=== PATIENT | female | born 1965 | race African-American/Black ===

== ENCOUNTER 2016-10-16 16:57 | Emergency (ER) | payer SELFPAY ==
[~2016-10-16] VITALS: Ht 152.4 cm; Wt 120.7 kg
[~2016-10-16 16:57] MED LIST: HYDR-971 PO; LISI40TA PO
[2016-10-16] MEDS ORDERED: HYDR12.58 PO (18:19)
[2016-10-16] MEDS ORDERED: HYDROCODONE/APAP 5/325MG TABLET. PO ONE (18:30)
--- NOTE | 2016-10-16 18:42 | PHYS DOC ---
Past Medical History Past Medical History: Asthma, Diabetes-Type II, Hypertension Additional Past Medical Histor: cervical cancer, Past Surgical History: Tubal ligation Additional Past Surgical Histo: R hand surgery Alcohol Use: None Drug Use: None Adult General Chief Complaint Chief Complaint: LOWER EXTREMITY SWELLING HPI HPI Patient is a 51 year old female who presents with complaint of left lower show any swelling and pain. Patient states that her symptoms started 3 days ago and have been progressively getting worse. Patient denies any associated fevers, shortness of breath, or chest pain. Patient denies any previous history of similar symptoms. Patient has history of diabetes mellitus type 2. The patient rates pain currently as 5 out of 10. The patient is concerned as to the cause of her swelling in the lower extremity and wants to make sure that she does not have any evidence of something serious. Review of Systems Review of Systems Constitutional: Denies fever or chills [] Eyes: Denies change in visual acuity, redness, or eye pain [] HENT: Denies nasal congestion or sore throat [] Respiratory: Denies cough or shortness of breath [] Cardiovascular: Denies chest pain or edema [] GI: Denies abdominal pain, nausea, vomiting, bloody stools or diarrhea [] : Denies dysuria or hematuria [] Musculoskeletal: Left lower extremity swelling and pain [] Integument: Denies rash or skin lesions [] Neurologic: Denies headache, focal weakness or sensory changes [] Current Medications Current Medications Current Medications Medications (Trade) Dose Ordered Sig/Jessi Start Time Stop Time Status Last Admin Dose Admin Acetaminophen/ Hydrocodone Bitart (Lortab 5/325) 1 tab 1X ONCE 10/16/16 18:30 10/16/16 18:31 DC 10/16/16 18:45 1 TAB Allergies Allergies Allergies Coded Allergies Type Severity Reaction Last Updated Verified morphine Allergy Intermediate Rash/HIVES/ITCH 08/08/15 Yes Physical Exam Physical Exam Constitutional: Alert, obese, afebrile, appears in mild discomfort. [] HENT: Normocephalic, atraumatic, bilateral external ears normal, oropharynx moist, no oral exudates, nose normal. [] Eyes: PERRLA, EOMI, conjunctiva normal, no discharge. [] Neck: Normal range of motion, no tenderness, supple, no stridor. [] Cardiovascular:Heart rate regular rhythm, no murmur [] Lungs & Thorax: Bilateral breath sounds clear to auscultation [] Abdomen: Bowel sounds normal, soft, no tenderness, no masses, no pulsatile masses. [] Skin: Warm, dry, no erythema, no rash. [] Back: No tenderness, no CVA tenderness. [] Extremities: Bilateral lower extremities are grossly symmetric, bilateral 1+ pitting edema, left calf tenderness to palpation, pulses 2+ distally. [] Neurologic: Alert and oriented X 3, normal motor function, normal sensory function, no focal deficits noted. [] Current Patient Data Vital Signs Vital Signs Date Time Temp Pulse Resp B/P Pulse Ox O2 Delivery O2 Flow Rate FiO2 10/16/16 20:29 82 153/81 Room Air 10/16/16 17:05 97.5 18 97 97.5 Lab Values Laboratory Tests Test 10/16/16 17:37 POC Urine HCG, Qualitative Hcg negative (Negative) EKG EKG Not performed [] Radiology/Procedures Radiology/Procedures [facility] [address] [place], [place] [id number] IMAGING REPORT Signed PATIENT: NIMCO MAYA ACCOUNT: [id number] : 1965 LOCATION: ER AGE: 51 SEX: F EXAM STATUS: REG ER ORD. PHYSICIAN: ELISEO MELO MD REASON: left lower extremity swelling and pain, rule out DVT PROCEDURE: VENOUS LOWER EXTREMITY LEFT PROCEDURE Left lower extremity venous Doppler. HISTORY Left ankle swelling. Pain behind left knee for 3 days. TECHNIQUE Veins of left lower extremity were interrogated under grayscale, color Doppler, and spectral Doppler modes. COMPARISON None. FINDINGS Veins are compressible and demonstrate normal Doppler flow dynamics. There is no evidence of deep venous thrombosis. IMPRESSION No evidence of left lower extremity deep venous thrombosis. Electronically signed by: Og Walker MD (Oct 16, 2016 19:38:31) DICTATED and SIGNED BY: OG WALKER MD DATE: 10/16/161937 CC: JULIA ANDINO MD; ELISEO MELO MD ~ [] Course & Med Decision Making Course & Med Decision Making Pertinent Labs and Imaging studies reviewed. (See chart for details) The patient's ultrasound was negative for DVT. This was the patient's primary concern and she voiced reassurance that no evidence of blood clot was found. The patient's pain may be due to persistent mild lower extremity edema versus possible neuropathic symptoms. I have low suspicion for infection at this time. Recommended that the patient follow-up with her primary physician in one week. Patient was given a small prescription of hydrocodone to help with symptoms. Also recommended elevation of the lower extremities while at rest and use of compression hose to help reduce swelling. Advised return emergency department for any worsening symptoms. Patient voiced understanding and in agreement with treatment plan. Dragon Disclaimer Dragon Disclaimer This electronic medical record was generated, in whole or in part, using a voice recognition dictation system. Departure Departure Impression: Primary Impression: Left leg pain Additional Impression: Peripheral edema Disposition: HOME, SELF-CARE Condition: IMPROVED Referrals: JULIA ANDINO MD (PCP) Patient Instructions: Pain of Unknown Etiology (Pain without a known Cause) Additional Instructions: Your ultrasound did not show any evidence of a blood clot in your left leg. Follow-up with your primary doctor in 1 week if symptoms do not improve. Return to the emergency department for any worsening symptoms. Scripts Hydrocodone/Apap 5-325 (Wayne 5-325 Tablet)1 Each Tablet1-2 Tab PO Q4-6HRS PRN PAIN #20 TAB Prov:ELISEO MELO MD 10/16/16 Problem Qualifiers ELISEO MELO MD Oct 16, 2016 18:42
--- NOTE | 2016-10-16 19:40 | RAD ---
PROCEDURE Left lower extremity venous Doppler. HISTORY Left ankle swelling. Pain behind left knee for 3 days. TECHNIQUE Veins of left lower extremity were interrogated under grayscale, color Doppler, and spectral Doppler modes. COMPARISON None. FINDINGS Veins are compressible and demonstrate normal Doppler flow dynamics. There is no evidence of deep venous thrombosis. IMPRESSION No evidence of left lower extremity deep venous thrombosis. Electronically signed by: Og Kimble MD (Oct 16, 2016 19:38:31)
[2016-10-16] MEDS ORDERED: HYDR-971 PO (20:23)
[2016-10-16 20:29] VITALS: BP 153/81
== END 2016-10-16 20:40 | disposition home or self-care (01) ==
LOC: ER 16:57
DX: M79.662 Pain in left lower leg (principal); R60.0 Localized edema; J45.909 Unspecified asthma, uncomplicated; I10 Essential (primary) hypertension; E11.9 Type 2 diabetes mellitus without complications; Z88.5 Allergy status to narcotic agent
CPT/HCPCS: 81025; 93971; 99284-25